=== PATIENT | female | born 1995 | race Caucasian/White ===

== ENCOUNTER 2017-02-04 18:12 | Inpatient (IN) | payer BC ==
[2017-02-04 19:47] LABS: BASOPHIL 0.2 % (0-2.0); EOSINOPHIL 0.2 % (0-4.5); MCH 30.1 pg (25.7-33.7); MCHC 34.2 g/dl (32.0-36.0); MEAN CELL VOLUME 88.1 fl (80-96); MEAN PLT VOLUME 10.8 fl (7.5-11.1); NEUTROPHILS 80.4 % (42.8-82.8); PLATELET COUNT 196 K/MM3 (134-434); RDW 12.2 % (11.6-15.6); WHITE BLOOD COUNT 7.4 K/mm3 (4.0-10.0)
[2017-02-04 19:57] LABS: URINE APPEARANCE SLCLOUDY; URINE BILIRUBIN NEGATIVE (NEGATIVE); URINE BLOOD 2+ (NEGATIVE); URINE COLOR LTYELLOW; URINE GLUCOSE (UA) NEGATIVE (NEGATIVE); URINE KETONE NEGATIVE (NEGATIVE); URINE NITRITE NEGATIVE (NEGATIVE); URINE PROTEIN NEGATIVE (NEGATIVE); URINE UROBILINOGEN NEGATIVE mg/dL (0.2-1.0)
[2017-02-04 19:59] LABS: INR 0.93 (0.82-1.09); PROTHROMBIN TIME (PATIENT) 10.2 SEC (9.98-11.88)
[2017-02-04 20:01] LABS: ACTIVATED PTT 24.5 SECONDS (26.9-34.4)
[2017-02-04 20:11] LABS: ALBUMIN 2.8 g/dl (3.4-5.0); ANION GAP 9 (8-16); BILIRUBIN,TOTAL 0.3 mg/dL (0.2-1.0); CALCIUM 9.5 mg/dL (8.5-10.1); CO2 27 mmol/L (21-32); CREATININE 0.5 mg/dL (0.55-1.02); GLUCOSE,RANDOM 75 mg/dL (74-106); SGOT/AST 17 U/L (15-37); SGPT/ALT 17 U/L (12-78); TOT PROT 6.2 g/dl (6.4-8.2); URIC ACID 3.3 mg/dL (2.6-7.2)
[2017-02-04 20:12] LABS: ALK PHOS 219 U/L (45-117); URINE LEUK ESTERASE 2+ (NEGATIVE)
[2017-02-04 20:13] LABS: URINE BACTERIA RARE /hpf (NONE SEEN); URINE MUCUS RARE; URINE RBC 9 /hpf (0-3); URINE WBC 11 /hpf (3-5); YEAST RARE
[2017-02-04] MEDS ORDERED: DEXTROSE 5%-LACTATED RINGERS 1,000 ML IV SCH (21:00)
[2017-02-04 21:23] LABS: HIV 1 & 2 AB NEGATIVE; HIV 1 AGp24 NEGATIVE
[2017-02-04] MEDS ORDERED: TUBERCULIN PPD 5 TU/0.1ML SYRINGE (IN PATIENT USE ONLY) ID ONE (23:00)
[2017-02-04 23:05] VITALS: BMI 30.9
--- NOTE | 2017-02-04 23:05 | HP ---
Past Medical History - Primary Care Physician PCP:: Tre Barraza - Admission Chief Complaint: 39 weeks , labor , gestational HTN History of Present Illness: 21 yo f edc by sono 02/08/17 c/o contraction , bp 130 /87 , cx 3 cm 80 vx -2 mi, fhr cat 1, contractio q 3 to 4 min , no headache, no blurred vision History Source: Patient Limitations to Obtaining History: No Limitations - Past Medical History ...: 1 ...Para: 0 ...Term: 0 ...: 0 ...Spon : 0 ...Induced : 0 ...LMP: 05/11/16 ... Weeks Gestation by Dates: 38.3 ...EDC by Dates: 02/15/17 ...EDC by Sono: 02/08/17 - Past Surgical History Hx Myomectomy: No Hx Transabdominal Cerclage: No - Smoking History Smoking history: Current every day smoker Aproximately how many cigarettes per day: 2 - Alcohol/Substance Use Hx Alcohol Use: No - Social History Usual Living Arrangement: Yes: With Spouse History of Recent Travel: No Home Medications - Allergies Allergies/Adverse Reactions: Allergies Allergy/AdvReac Type Severity Reaction Status Date / Time No Known Allergies Allergy Verified 02/04/17 18:28 - Home Medications Home Medications: Ambulatory Orders Vit/Iron Fumarate/FA [ Tablet] 1 tab PO DAILY 02/04/17 Review of Systems - Review of Systems Constitutional: reports: No Symptoms Eyes: reports: No Symptoms HENT: reports: No Symptoms Neck: reports: No Symptoms Cardiovascular: reports: No Symptoms Respiratory: reports: No Symptoms, PND Genitourinary: reports: No Symptoms Breasts: reports: No Symptoms Reported Musculoskeletal: reports: No Symptoms Integumentary: reports: No Symptoms Neurological: reports: No Symptoms Endocrine: reports: No Symptoms Hematology/Lymphatic: reports: No Symptoms Psychiatric: reports: No Symptoms Physical Exam - Maternity Vital Signs: Vital Signs Temperature 99.0 F 02/04/17 21:50 Pulse Rate 76 02/04/17 21:50 Respiratory Rate 18 02/04/17 21:50 Blood Pressure 131/81 02/04/17 21:50 O2 Sat by Pulse Oximetry (%) Constitutional: Yes: Well Nourished, No Distress, Calm Eyes: Yes: WNL, Conjunctiva Clear, EOM Intact HENT: Yes: WNL, Atraumatic, Normocephalic Neck: Yes: WNL, Supple, Trachea Midline Cardiovascular: Yes: WNL, Regular Rate and Rhythm Breast(s): Yes: WNL - Abdominal Exam/OB Fundal Height: 40 Number of Fetuses: Single Presentation: Vertex Contractions: Yes Regularity: Irregular Intensity: Mod/Strong Monitor Mode: External Heart Rate Location: [facility] Category: I Accelerations: Uniform Decelerations: None - Vaginal Exam/OB Vaginal Bleediing: No Speculum Exam: No Amniotic Membrane Status: Intact Presentation: Vertex/Position Station: -2 - Physical Exam Musculoskeletal: Yes: WNL Extremities: Yes: WNL Edema: LLE: Trace, RLE: Trace Deep Tendon Reflex Grade: Normal +2 ...Motor Strength: WNL Psychiatric: Yes: WNL - Labs Lab Results: CBC, BMP 02/04/17 18:35 02/04/17 18:35 Hemorrhage Risk Assessment - Risk Factors Medium Risk Factors: Yes: None High Risk Factors: Yes: None Risk Score: 1 Risk Level: Medium Risk Problem List - Problems (1) with 39 completed weeks gestation Code(s): Z3A.39 - 39 WEEKS GESTATION OF (2) Gestational [-induced] hypertension without significant proteinuria , complicating childbirth Code(s): O13.4 - GESTATNL HTN WITHOUT SIGNIFICANT PROTEIN, COMP CHILDBIRTH (3) Labor established Code(s): AOT0294 - Assessment/Plan admit, fhm, monitor BP, HELLP profile
[2017-02-04 23:11] LABS: URINE MARIJUANA THC NEGATIVE ng/ml (CUTOFF=50)
--- NOTE | 2017-02-05 07:32 | PN ---
Progress Note (short form) - Note Progress Note: cx 4 cm 80 vx -2 mi, fhr cat i , contraction q 3 to 4 min moderate intensity no headache Last Vital Signs Temp Pulse Resp BP Pulse Ox 97.8 F 76 20 129/77 02/05/17 06:00 02/05/17 06:00 02/05/17 06:00 02/05/17 06:00 plan arom, done, clear fluid pitocin rba discussed , agreed Problem List - Problems (1) with 39 completed weeks gestation Code(s): Z3A.39 - 39 WEEKS GESTATION OF (2) Gestational [-induced] hypertension without significant proteinuria , complicating childbirth Code(s): O13.4 - GESTATNL HTN WITHOUT SIGNIFICANT PROTEIN, COMP CHILDBIRTH (3) Labor established Code(s): QVH8316 -
[2017-02-05] MEDS ORDERED: OXYTOCIN 15 UNITS/ LR 250 ML 250 ML IVPB SCH (07:45)
[2017-02-05] MEDS ORDERED: PROMETHAZINE HCL 25 MG/1 ML VIAL IVPUSH ONE (08:23)
[2017-02-05] MEDS ORDERED: BUTORPHANOL TARTRATE 1 MG/ML VIAL IVPUSH PRN (08:23)
[2017-02-05] MEDS ORDERED: ELECTROLYTE-148 SOLN 1,000 ML IV SCH (09:30)
[2017-02-05] MEDS ORDERED: FENTANYL/BUPIVACAINE/NS/PF - PCEA - 50 ML DISP.SYRIN EP SCH (09:45)
--- NOTE | 2017-02-05 14:34 | PN ---
Ante-Partal Exam - Subjective Subjective: pt is c/o pressure to push Vital Signs: Vital Signs Temperature 98.2 F 02/05/17 14:00 Pulse Rate 83 02/05/17 13:45 Respiratory Rate 18 02/05/17 13:45 Blood Pressure 122/74 02/05/17 13:45 O2 Sat by Pulse Oximetry (%) 100 02/05/17 13:45 Bleeding: No Headache: No Visual changes: No Right upper quadrant pain: No Pain (scale 1-10): 7 - Contractions Contractions: Yes (q2min) Regularity: Regular Intensity: Moderate Monitor Mode: External - Exam during Labor Heart Rate: 140 Variability: Moderate Heart Rate Location: Midline Category: I Monitor Accelerations: Present Monitor Decelerations: Variable (small, occasional) Exam: Vaginal Dilatation (cm): 10 Effacement (%): 100 Amniotic Membrane Status: Ruptured Presentation: Vertex Station: +2 - Intrapartum Hemorrhage Risk Medium Risk Factors: None High Risk Factors: None Risk Score: 0 Risk Level: Low Risk - Assessment/Plan Assessment/Plan: 21yo P0 with at EGA 39wks in second stage of labor. Adequate gynecoid pelvimetry. The fetus does not require any intervention. Patient is pushing. Encouragement given and technique taught. Anticipate .
[2017-02-05] MEDS: IBUPROFEN 600 MG TABLET (FP) PO PRN (15:20)
[2017-02-05] MEDS: ACETAMINOPHEN 325 MG TABLET (FP) PO PRN (15:20)
[2017-02-05] MEDS ORDERED: BENZOCAINE 28 GM HEMORRHOIDAL OINTMENT TP PRN (15:55)
[2017-02-05] MEDS ORDERED: WITCH HAZEL 50% (TUCKS) 40 PAD/JAR PAD TP PRN (15:55)
[2017-02-05] MEDS ORDERED: BENZOCAINE 20% 57 GM BOTTLE TP PRN (15:55)
[2017-02-05] MEDS ORDERED: BISACODYL 10 MG SUPP.RECT RC PRN (15:55)
[2017-02-05] MEDS ORDERED: METHYLERGONOVINE MALEATE 0.2 MG/1 ML AMP IM PRN (15:55)
--- NOTE | 2017-02-05 15:59 | PN ---
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 Mother and baby are well.
[2017-02-05] MEDS ORDERED: D5W-LR W/ 20 UNITS OXYTOCIN 1,000 ML IV SCH (16:00)
--- NOTE | 2017-02-06 02:27 | PN ---
Post Progress Note - Subjective Subjective: Patient without acute complaints. Reports tolerating oral intake without nausea or vomiting. Ambulating without dizziness. Denies fevers or chills. Pain well controlled with oral pain medication. without difficulty. Passing flatus. Post Day: 1 Type of Delivery: Vital Signs: Vital Signs Temperature 98.1 F 02/06/17 01:58 Pulse Rate 93 H 02/06/17 01:58 Respiratory Rate 18 02/06/17 01:58 Blood Pressure 114/60 02/06/17 01:58 O2 Sat by Pulse Oximetry (%) 100 02/05/17 15:45 Breast Exam: Yes: Soft Uterus: Yes: Fundus Firm, Fundus below umbilicus Abdomen/GI: Yes: Abdomen soft, Passing flatus, Tolerating PO. No: Tender Lochia: Yes: Serosa Lochia, amount: Moderate Extremities: Yes: Calves non-tender. No: Edema Perineum: Yes: Laceration Activity: Ambulating - Labs Labs: CBC WBC 7.4 K/mm3 (4.0-10.0) 02/04/17 18:35 RBC 3.55 M/mm3 (3.60-5.2) L 02/04/17 18:35 Hgb 10.7 GM/dL (10.7-15.3) D 02/04/17 18:35 Hct 31.3 % (32.4-45.2) L 02/04/17 18:35 MCV 88.1 fl (80-96) 02/04/17 18:35 MCH 30.1 pg (25.7-33.7) 02/04/17 18:35 MCHC 34.2 g/dl (32.0-36.0) 02/04/17 18:35 RDW 12.2 % (11.6-15.6) 02/04/17 18:35 Plt Count 196 K/MM3 (134-434) 02/04/17 18:35 MPV 10.8 fl (7.5-11.1) D 02/04/17 18:35 Neutrophils % 80.4 % (42.8-82.8) 02/04/17 18:35 Lymphocytes % 12.7 % (8-40) D 02/04/17 18:35 Monocytes % 6.5 % (3.8-10.2) 02/04/17 18:35 Eosinophils % 0.2 % (0-4.5) D 02/04/17 18:35 Basophils % 0.2 % (0-2.0) 02/04/17 18:35 Retic Count 0.98 % (0.5-1.5) 02/04/17 18:35 Assessment/Plan 21 yo PPD # 1 s/p , afebrile, vital signs stable, doing well 1. Continue routine care. 2. Follow up AM CBC 3. Rh positive status, no rhogam indicated. 4. Encourage ambulation 5. Continue oral pain medication 6. Anticipate discharge home day #2
[2017-02-06] MEDS: ACETAMINOPHEN 325 MG TABLET (FP) PO PRN (04:46)
[2017-02-06] MEDS: IBUPROFEN 600 MG TABLET (FP) PO PRN (04:47)
[2017-02-06 08:19] LABS: BASOPHIL 0.3 % (0-2.0); EOSINOPHIL 0.3 % (0-4.5); MCH 29.8 pg (25.7-33.7); MCHC 34.1 g/dl (32.0-36.0); MEAN CELL VOLUME 87.2 fl (80-96); MEAN PLT VOLUME 10.1 fl (7.5-11.1); NEUTROPHILS 77.7 % (42.8-82.8); PLATELET COUNT 160 K/MM3 (134-434); RDW 12.4 % (11.6-15.6); WHITE BLOOD COUNT 8.5 K/mm3 (4.0-10.0)
[2017-02-06] MEDS: PRENATAL VITAMINS W/ FOLIC ACID TABLET (FP) PO SCH (09:52)
[2017-02-06] MEDS ORDERED: SENNOSIDES/DOCUSATE COMBO (SENNA PLUS) TABLET (UD) PO PRN (22:00)
[2017-02-07] MEDS: ACETAMINOPHEN 325 MG TABLET (FP) PO PRN (00:28)
[2017-02-07] MEDS: IBUPROFEN 600 MG TABLET (FP) PO PRN (00:28)
[2017-02-07 08:22] VITALS: BP 131/75; PULSE 77; TEMP 99
[2017-02-07] MEDS: PRENATAL VITAMINS W/ FOLIC ACID TABLET (FP) PO SCH (09:28)
--- NOTE | 2017-02-07 10:06 | PN ---
Post Progress Note - Subjective Subjective: Patient without acute complaints. Reports tolerating oral intake without nausea or vomiting. Ambulating without dizziness. Denies fevers or chills. Pain well controlled with oral pain medication. without difficulty. Passing flatus. Post Day: 2 Type of Delivery: Vital Signs: Vital Signs Temperature 99.0 F 02/07/17 07:30 Pulse Rate 77 02/07/17 07:30 Respiratory Rate 20 02/07/17 07:30 Blood Pressure 131/75 02/07/17 07:30 O2 Sat by Pulse Oximetry (%) 100 02/05/17 15:45 Breast Exam: Yes: Engorged Uterus: Yes: Fundus Firm, Fundus below umbilicus Abdomen/GI: Yes: Abdomen soft, Passing flatus, Tolerating PO. No: Tender Lochia: Yes: Serosa Lochia, amount: Small Extremities: Yes: Calves non-tender. No: Edema Perineum: Yes: Laceration Activity: Ambulating - Labs Labs: CBC WBC 8.5 K/mm3 (4.0-10.0) 02/06/17 07:45 RBC 3.10 M/mm3 (3.60-5.2) L 02/06/17 07:45 Hgb 9.2 GM/dL (10.7-15.3) L D 02/06/17 07:45 Hct 27.1 % (32.4-45.2) L 02/06/17 07:45 MCV 87.2 fl (80-96) 02/06/17 07:45 MCH 29.8 pg (25.7-33.7) 02/06/17 07:45 MCHC 34.1 g/dl (32.0-36.0) 02/06/17 07:45 RDW 12.4 % (11.6-15.6) 02/06/17 07:45 Plt Count 160 K/MM3 (134-434) 02/06/17 07:45 MPV 10.1 fl (7.5-11.1) 02/06/17 07:45 Neutrophils % 77.7 % (42.8-82.8) 02/06/17 07:45 Lymphocytes % 14.4 % (8-40) 02/06/17 07:45 Monocytes % 7.3 % (3.8-10.2) 02/06/17 07:45 Eosinophils % 0.3 % (0-4.5) 02/06/17 07:45 Basophils % 0.3 % (0-2.0) 02/06/17 07:45 Retic Count 0.98 % (0.5-1.5) 02/04/17 18:35 Haptoglobin 130 mg/dL (34-200) 02/04/17 18:35 Assessment/Plan 21 yo PPD # 2 s/p , afebrile, vital signs stable, mild symptomatic anemia, for discharge home 1. Patient stable for discharge home today. 2. Patient encouraged to contact MD for: - Severe pain not controlled by oral pain medication - Fevers or chills - Nausea or vomiting, intolerance of oral intake 3. Patient to follow up in office in 4-6 weeks for visit
--- NOTE | 2017-02-07 10:19 | DS ---
Physical Exam-CNC OPERATOR Vital Signs: Vital Signs Temperature 99.0 F 02/07/17 07:30 Pulse Rate 77 02/07/17 07:30 Respiratory Rate 20 02/07/17 07:30 Blood Pressure 131/75 02/07/17 07:30 O2 Sat by Pulse Oximetry (%) 100 02/05/17 15:45 Labs: CBC, BMP 02/06/17 07:45 02/04/17 18:35 Delivery - Delivery Vaginal Delivery: No Problems, Spontaneous Type of Anesthesia: Local, Epidural Episiotomy/Laceration: Perineal Extension/lac, 1st degree EBL (cc): 300 Delivery, Single - Stages of Labor Date 1st Stage Initiatied: 02/05/17 Time 1st Stage Initiated: 07:00 Date 2nd Stage Initiated: 02/05/17 Time 2nd Stage Initiated: 14:15 Date of Delivery: 02/05/17 Time of Delivery: 14:42 Time Placenta Delivered: 14:45 Placenta: Yes: Spontaneous, Normal Configuration - Condition of Crisis Worker/Dry Cans Operator Present: No Infant Gender: Male Weight: 6 lb 9 oz Position: Right, OA Total Hours ROM (Hrs/Mins): 7hrs 25min - 1 Minute Total Score: 9 5 Minutes Total Score: 9 - [place] Feeding Plan Initial Plan: Exclusive throughout hospitalization Benefits of Exclusively reinforced: Yes Discharge Summary Reason For Visit: LABOR ADMIT Current Active Problems Gestational [-induced] hypertension without significant proteinuria, complicating childbirth (Acute) Labor established (Acute) with 39 completed weeks gestation (Acute) Procedures: Principal: vaginal delivery Other Procedures: induction of labor Hospital Course: patient admitted with labile BPs, admitted for observation. PEC labs negative, no signs of PEC augmented with pitocin, progressed to deliver via Remained afebrile, vital signs stable, blood pressures returned to normal, stable for discharge home PPD #2 Condition: Good - Instructions Diet, Activity, Other Instructions: Physical activity Resume your normal everyday activity as tolerated no heavy lifting or exercise until seen by your surgeon. You may walk unlimited giovanni of and climb stairs. You may resume driving the car when you feel safe and comfortable behind the wheel. No sexual activity as instructed. Diet There are no dietary restrictions. Eat healthy, high-fiber foods. Drink 6 to 8 glasses of liquid each day. This will assist in keeping your bowels are regular. Pain management You may take Tylenol or acetaminophen or Ibuprofen (for example, Motrin, Advil etc.) from my pain prescription medication is ordered should be taken as prescribed for moderate to severe pain. Call MD for any of the following: Severe pain not relieved by medication Fever of 101 or higher Excessive bleeding or drainage on dressing Inability to urinate Disposition: HOME - Home Medications Comprehensive Discharge Medication List: Ambulatory Orders Vit/Iron Fumarate/FA [ Tablet] 1 tab PO DAILY 02/04/17 Ibuprofen [Motrin -] 600 mg PO QID PRN #30 tablet 02/07/17
== END 2017-02-07 13:40 | disposition home or self-care (01) | DRG 775 ==
LOC: JDEL 18:12 → JLDR 20:40 → J3W 02-05 16:22
PROVIDERS: ADMIT Obstetrics & Gynecology; ATTEND Obstetrics & Gynecology
PROC: 10E0XZZ Delivery of Products of Conception, External Approach (ICD-10-PCS; principal; 2017-02-05)
PROC: 0HQ9XZZ Repair Perineum Skin, External Approach (ICD-10-PCS; 2017-02-05)
DX: O13.4 Gestational [pregnancy-induced] hypertension without significant proteinuria, complicating childbirth (principal); O70.0 First degree perineal laceration during delivery; O99.02 Anemia complicating childbirth; D64.9 Anemia, unspecified; Z3A.39 39 weeks gestation of pregnancy; Z37.0 Single live birth
CPT/HCPCS: 36415; 59409; 80053; 80307; 81003; 81015; 82977; 83010; 84550; 85025; 85044; 85610; 85730; 86593; 86850; 86900; 86901; 87389

== ENCOUNTER 2019-02-11 22:25 | Inpatient (IN) | payer OTHER ==
[2019-02-11] MEDS ORDERED: ELECTROLYTE-148 SOLN 1,000 ML IV SCH (23:45)
--- NOTE | 2019-02-11 23:53 | HP ---
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: Alzheimer's, CVA, Dementia, Migraine, Multiple Sclerosis, Peripheral Neuropathy, Parkinson's, Seizure, Syncope, TIA, Vertigo, Other Cardiovascular: No: AFIB, Aneurysm, Aortic Insufficiency, Aortic Stenosis, CAD, CHF, Deep Vein Thrombosis, HTN, Hyperlipdemia, NC, Mitral Insufficiency, Mitral Stenosis, Murmur, Pulmonary Hypertension, Other Pulmonary: No: Asthma, Bronchitis, Cancer, COPD, O2 Dependent, Pneumonia, Previously Intubated, Pulmonary Embolus, Pulmonary Fibrosis, Sleep Apnea, Other Gastrointestinal: No: Ascites, Cancer, Constipation, Crohn's Disease, Diverticulitis, Diverticulosis, Esophageal Varices, Gastritis, GERD, GI Bleed, Hemorrhoids, Hiatal Hernia, Inflamatory Bowel Disease, Irritable Bowel Disease, Pancreatitis, Peptic Ulcer Disease, Ulcerative Colitis, Other Hepatobiliary: No: Cirrhosis, Cholelithiasis, Cholecystitis, Choledocholithiasis , Hepatitis A, Hepatitis B, Hepatitis C, Other Renal/: No: Renal Failure, Renal Inusuff, BPH, Cancer, Hematuria, Hemodialysis , Neurogenic Bladder, Renal Calculi, UTI, Other Reproductive: No: Ectopic , Endometriosis, Fibroids, PID, Polycystic Ovary Syndrome, Postmenopausal, Other Heme/Onc: Yes: Anemia (mild) Infectious Disease: No: AIDS, C-Diff, Herpes Zoster, HIV, MRSA, STD's, Tuberculosis, VREF, Other Psych: No: Addictions, Anxiety, Bipolar, Depression, Panic, Psychosis, Schizophrenia, Other Musculoskeletal: No: Bursitis, Chronic low back pain, Hemiparesis, Hemiplegia, Osteoarthritis, Paraplegia, Other Rheumatology: No: Fibromyalgia, Gout, Lupus, Rheumatoid Arthritis, Sarcoidosis, Vasculitis, Other ENT: No: Allergic Rhinitis, Sinusitis, Other Endocrine: No: [place]'s Disease, Rosy's Disease, Diabetes Insipidus, Diabetes Mellitus, Hyperparathyroidism, Hyperthyroidism, Hypothyroidism, Osteopenia, SIADH, Other Dermatology: No: Basal Cell, Cellulitis, Eczema, Melanoma, Psoriasis, Squamous Cell, Other - Past Surgical History Past Surgical History: No: None, AAA Repair, AICD, Amputation, Appendectomy, Arthrosocopy, AV Fistula/Graft, Bariatric Surgery, Breast Biopsy, Bypass, CABG, Carotid Endarterectomy, Cataract Removal, Cholecystectomy, Colectomy, Colonoscopy, Colostomy, Craniotomy, , Cystectomy, Hernia Repair, Hysterectomy, Ileal Conduit, Ileosotomy, Joint Replacement, Kidney Transplant, Laminectomy, Liver Transplant, Mastectomy, Nephrectomy, Oopherectomy, Orchiectomy, Permanent Pacemaker, Prostatectomy, Splenectomy, Stent, Thoracotomy , TURP, Tonsillectomy, Tubal Ligation, Upper Endoscopy, Valve Replacement, Vasectomy, Vein Stripping/Ligation Hx Myomectomy: No Hx Transabdominal Cerclage: No - Smoking History Smoking history: Current every day smoker Have you smoked in the past 12 months: No Aproximately how many cigarettes per day: 2 - Alcohol/Substance Use Hx Alcohol Use: No History of Substance Use: reports: Marijuana - Social History History of Recent Travel: No Home Medications - Allergies Allergies/Adverse Reactions: Allergies Allergy/AdvReac Type Severity Reaction Status Date / Time No Known Allergies Allergy Verified 02/04/17 18:28 - Home Medications Home Medications: Ambulatory Orders Vit/Iron Fum/Folic AC [ Tablet] 1 tab PO DAILY 02/04/17 Family Disease History - Family Disease History Family History: Unremarkable Review of Systems - Review of Systems Constitutional: reports: No Symptoms Eyes: reports: No Symptoms HENT: reports: No Symptoms Neck: reports: No Symptoms, Swollen Glands Respiratory: reports: No Symptoms Gastrointestinal: reports: No Symptoms Genitourinary: reports: No Symptoms Breasts: reports: No Symptoms Reported Musculoskeletal: reports: No Symptoms Integumentary: reports: No Symptoms Neurological: reports: No Symptoms Endocrine: reports: No Symptoms Hematology/Lymphatic: reports: No Symptoms Psychiatric: reports: No Symptoms Physical Exam - Maternity Constitutional: Yes: Calm Eyes: Yes: WNL HENT: Yes: Atraumatic, Tonsillar Exudate Cardiovascular: Yes: Regular Rate and Rhythm - Abdominal Exam/OB Number of Fetuses: Single Presentation: Vertex Contractions: Yes Regularity: Irregular Monitor Mode: External Category: I Accelerations: Uniform Decelerations: None - Vaginal Exam/OB Speculum Exam: No (grossly ruptured) Dilatation (cm): 4 Effacement (%): 70 Amniotic Membrane Status: Ruptured Station: -3 - Physical Exam Musculoskeletal: Yes: WNL Extremities: Yes: WNL Edema: LLE: Trace, RLE: Trace Integumentary: Yes: WNL ...Motor Strength: WNL Psychiatric: Yes: Alert, Oriented Imaging - Results Ultrasound: Report Reviewed Assessment/Plan 23 y/o @ 38.5wks, PROM, GBS negative, FHT cat I, comfortable -Expectant management -consider pitocin augmentation accordingly
[2019-02-12 01:02] LABS: BASO % 0.2 % (0-2.0); EOS % 0.2 % (0-4.5); HEMATOCRIT 31.4 % (32.4-45.2); HEMOGLOBIN 10.4 GM/dL (10.7-15.3); LYMPH % 19.7 % (8-40); MCH 27.7 pg (25.7-33.7); MEAN CELL VOLUME 83.9 fl (80-96); MEAN PLT VOLUME 10.2 fl (7.5-11.1); MONO % 6.8 % (3.8-10.2); NEUT % 73.1 % (42.8-82.8); PLATELET COUNT 248 K/MM3 (134-434); RBC 3.75 M/mm3 (3.60-5.2); RDW 13.3 % (11.6-15.6); WHITE BLOOD COUNT 7.6 K/mm3 (4.0-10.0)
[2019-02-12 01:15] LABS: INR 0.95 (0.83-1.09); PROTHROMBIN TIME (PATIENT) 11.2 SEC (9.7-13.0)
[2019-02-12 01:24] LABS: BLOOD UREA NITROGEN 5.5 mg/dL (7-18); CALCIUM 8.8 mg/dL (8.5-10.1); CREATININE 0.4 mg/dL (0.55-1.3); POTASSIUM 3.6 mmol/L (3.5-5.1)
[2019-02-12 01:42] VITALS: BMI 29.9
[2019-02-12] MEDS ORDERED: OXYTOCIN 30 UNITS in 0.9% NS 30 UNIT/500 ML INFUS.BAG IVPB SCH (02:45)
[2019-02-12 04:24] LABS: COCAINE, UR NEGATIVE ng/ml (CUTOFF=300); METHADONE, UR NEGATIVE ng/ml (CUTOFF=300); OPIATES, URI NEGATIVE ng/ml (CUTOFF=300); PHENCYCLIDINE,URINE NEGATIVE ng/ml (CUTOFF=25); URINE AMPHETAMINES NEGATIVE ng/ml (CUTOFF=500); URINE BARBITURATES NEGATIVE ng/ml (CUTOFF=200); URINE BENZODIAZEPINES NEGATIVE ng/ml (CUTOFF=200)
[2019-02-12] MEDS ORDERED: PROMETHAZINE HCL 25 MG/1 ML VIAL IVPB ONE (06:00)
[2019-02-12] MEDS ORDERED: BUTORPHANOL TARTRATE 2 MG/ML VIAL IVPB ONE ×2 (06:00→08:45)
[2019-02-12] MEDS ORDERED: PROMETHAZINE HCL 25 MG/1 ML VIAL ONE (06:38)
[2019-02-12] MEDS ORDERED: BUTORPHANOL TARTRATE 1 MG/ML VIAL ONE ×2 (06:38)
[2019-02-12] MEDS ORDERED: FENTANYL/BUPIVACAINE/NS/PF - PCEA - 50 ML DISP.SYRIN EP ONE (07:01)
[2019-02-12] MEDS ORDERED: NALOXONE HCL 0.4 MG/ML VIAL IVPUSH PRN (07:51)
[2019-02-12] MEDS ORDERED: FENTANYL/BUPIVACAINE/NS/PF - PCEA - 50 ML DISP.SYRIN EP SCH (08:00)
[2019-02-12] MEDS ORDERED: BENZOCAINE 20% 57 GM BOTTLE TP PRN (09:05)
[2019-02-12] MEDS ORDERED: BENZOCAINE 28 GM HEMORRHOIDAL OINTMENT TP PRN (09:05)
[2019-02-12] MEDS ORDERED: BISACODYL 10 MG SUPP.RECT RC PRN (09:05)
[2019-02-12] MEDS ORDERED: WITCH HAZEL 50% (TUCKS) 40 PAD/JAR PAD TP PRN (09:05)
--- NOTE | 2019-02-12 09:10 | PN ---
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 Loose nuchal cord x1 removed and shoulders delivered without difficulty. was suction at mouth and nostrils by attending. Cord was clamped and cut after delay. Samples for gases and blood obtained. Infant handed off to nurse. Placenta delivered spontaneously and intact, 3VC. Exam revealed excellent hemostasis and no lacerations. Instrument/sponge count correct x 2
[2019-02-12] MEDS ORDERED: OXYTOCIN 20 UNITS in 0.9% NS 20 UNIT/1,000 ML INFUS.BAG IV SCH (09:15)
[2019-02-12] MEDS: ACETAMINOPHEN 325 MG TABLET (FP) PO PRN ×2 (09:25→17:24)
[2019-02-12] MEDS: IBUPROFEN 600 MG TABLET (FP) PO PRN ×2 (09:25→17:23)
[2019-02-12] MEDS ORDERED: IBUPROFEN 600 MG TABLET (FP) PO ONE (09:26)
[2019-02-12] MEDS ORDERED: ACETAMINOPHEN 325 MG TABLET (FP) ONE (09:26)
[2019-02-13] MEDS: IBUPROFEN 600 MG TABLET (FP) PO PRN ×3 (01:30→21:43)
[2019-02-13] MEDS: ACETAMINOPHEN 325 MG TABLET (FP) PO PRN ×3 (01:31→21:44)
--- NOTE | 2019-02-13 07:23 | PN ---
Post Progress Note - Subjective Subjective: Ambulating, breast feeding, tolerating PO, lochia decreased, voiding Post Day: 1 Type of Delivery: Vital Signs: Vital Signs Temperature 98.2 F 02/13/19 06:00 Pulse Rate 79 02/13/19 06:00 Respiratory Rate 18 02/13/19 06:00 Blood Pressure 114/71 02/13/19 06:00 O2 Sat by Pulse Oximetry (%) 100 02/12/19 09:40 Breast Exam: Yes: Other (deferred) Uterus: Yes: Fundus Firm Abdomen/GI: Yes: Abdomen soft Lochia, amount: Moderate Extremities: Yes: Calves non-tender Activity: Ambulating - Labs Labs: CBC WBC 7.6 K/mm3 (4.0-10.0) 02/12/19 00:15 RBC 3.75 M/mm3 (3.60-5.2) 02/12/19 00:15 Hgb 10.4 GM/dL (10.7-15.3) L 02/12/19 00:15 Hct 31.4 % (32.4-45.2) L D 02/12/19 00:15 MCV 83.9 fl (80-96) 02/12/19 00:15 MCH 27.7 pg (25.7-33.7) 02/12/19 00:15 MCHC 33.0 g/dl (32.0-36.0) 02/12/19 00:15 RDW 13.3 % (11.6-15.6) 02/12/19 00:15 Plt Count 248 K/MM3 (134-434) D 02/12/19 00:15 MPV 10.2 fl (7.5-11.1) 02/12/19 00:15 Absolute Neuts (auto) 5.6 K/mm3 (1.5-8.0) 02/12/19 00:15 Neutrophils % 73.1 % (42.8-82.8) 02/12/19 00:15 Lymphocytes % 19.7 % (8-40) D 02/12/19 00:15 Monocytes % 6.8 % (3.8-10.2) 02/12/19 00:15 Eosinophils % 0.2 % (0-4.5) 02/12/19 00:15 Basophils % 0.2 % (0-2.0) 02/12/19 00:15 Nucleated RBC % 0 % (0-0) 02/12/19 00:15 Other Findings, Remarks: AM labs results pending Assessment/Plan PPD # 1 in stable condition -Continue PP care -Anticipate D/C home tomorrow
[2019-02-13 07:54] LABS: BASO % 0.4 % (0-2.0); EOS % 0.6 % (0-4.5); HEMATOCRIT 27.6 % (32.4-45.2); HEMOGLOBIN 9.2 GM/dL (10.7-15.3); LYMPH % 24.6 % (8-40); MCHC 33.2 g/dl (32.0-36.0); MEAN CELL VOLUME 84.5 fl (80-96); MEAN PLT VOLUME 10.2 fl (7.5-11.1); MONO % 7.5 % (3.8-10.2); NEUT % 66.9 % (42.8-82.8); PLATELET COUNT 219 K/MM3 (134-434); RBC 3.27 M/mm3 (3.60-5.2); RDW 13.4 % (11.6-15.6)
[2019-02-13 09:01] LABS: POC NITRAZINE POS
[2019-02-13] MEDS ORDERED: SENNOSIDES/DOCUSATE COMBO (SENNA PLUS) TABLET (UD) PO PRN (22:00)
[2019-02-14] MEDS: IBUPROFEN 600 MG TABLET (FP) PO PRN (09:10)
[2019-02-14] MEDS: ACETAMINOPHEN 325 MG TABLET (FP) PO PRN (09:10)
[2019-02-14 09:31] VITALS: BP 135/76; PULSE 84; TEMP 98.3
== END 2019-02-14 11:20 | disposition home or self-care (01) | DRG 560 ==
LOC: JLDR 22:25 → J3W 02-12 10:55
PROVIDERS: ADMIT Student in an Organized Health Care Education/Training Program; ATTEND Student in an Organized Health Care Education/Training Program
PROC: 10E0XZZ Delivery of Products of Conception, External Approach (ICD-10-PCS; principal; 2019-02-12)
DX: O42.92 Full-term premature rupture of membranes, unspecified as to length of time between rupture and onset of labor (principal); Z3A.38 38 weeks gestation of pregnancy; Z37.0 Single live birth
CPT/HCPCS: 36415; 36600; 59409; 80048; 80307; 82803; 83986-QW; 85025; 85610; 85730; 86593; 86850; 86900; 86901

== ENCOUNTER 2019-08-08 20:53 | Emergency (ER) | payer BC, OTHER ==
[2019-08-08 20:57] VITALS: BP 114/70; PULSE 108; TEMP 98.7; BMI 26.2
--- NOTE | 2019-08-08 20:58 | PDOC ---
Rapid Medical Evaluation Time Seen by Provider: 08/08/19 20:55 Medical Evaluation: Allergies Allergy/AdvReac Type Severity Reaction Status Date / Time No Known Allergies Allergy Verified 02/04/17 18:28 08/08/19 20:55 CC: labile fevers and ARROYO; Took tylenol prior to arrival PE: OP- WNL. Lungs CTAB. FROM cervical spine. Neuro grossly normal. Orders: influenza Patient will proceed to ED for further evaluation. Discharge Disposition - Diagnosis Headache - Referrals - Patient Instructions - Post Discharge Activity
[2019-08-08] MEDS ORDERED: KETOROLAC TROMETHAMINE 60 MG/2 ML VIAL IM ONE (21:13)
[2019-08-08] MEDS ORDERED: KETOROLAC TROMETHAMINE 60 MG/2 ML VIAL ONE (21:14)
--- NOTE | 2019-08-08 21:16 | PDOC ---
History of Present Illness - General Chief Complaint: Headache Stated Complaint: HEADACHE/FEVER Time Seen by Provider: 08/08/19 20:55 - History of Present Illness Initial Comments: 08/08/19 21:15 24-year-old female denies the possibility of presents for flulike symptoms x1 day Past History - Past Medical History Allergies/Adverse Reactions: Allergies Allergy/AdvReac Type Severity Reaction Status Date / Time No Known Allergies Allergy Verified 08/08/19 20:57 Home Medications: Ambulatory Orders Vit/Iron Fum/Folic AC [ Tablet] 1 tab PO DAILY 02/04/17 Oseltamivir Phosphate [Tamiflu] 75 mg PO BID #10 capsule 08/08/19 Asthma: No Cancer: No Cardiac Disorders: No COPD: No Diabetes: No HTN: No Kidney Stones: Yes Seizures: No Thyroid Disease: No - Immunization History Immunization Up to Date: No - Psycho Social/Smoking Cessation Hx Smoking Status: No Smoking History: Current every day smoker Have you smoked in the past 12 months: No Number of Cigarettes Smoked Daily: 2 Information on smoking cessation initiated: Yes Hx Alcohol Use: No Drug/Substance Use Hx: No Hx Substance Use Treatment: No Review of Systems - Review of Systems Constitutional: Yes: Chills, Diaphoresis, Fever, Malaise, Night Sweats HEENTM: Yes: Nose Congestion Respiratory: Yes: Cough Neurological: Yes: Headache *Physical Exam - Vital Signs Last Vital Signs Temp Pulse Resp BP Pulse Ox 98.7 F 108 H 18 114/70 97 08/08/19 20:55 08/08/19 20:55 08/08/19 20:55 08/08/19 20:55 08/08/19 20:55 - Physical Exam 08/08/19 21:15 GENERAL: The patient is awake, alert, and fully oriented, in no acute distress. HEAD: Normal with no signs of trauma. EYES: sclera anicteric, conjunctiva clear. ENT: Ears normal tympanic membranes normal oropharynx clear uvula midline NECK: Normal range of motion LUNGS: Breath sounds equal, clear to auscultation bilaterally. No wheezes, and no crackles. HEART: S1 and S2 without murmur, rub or gallop. ABDOMEN: Soft, nontender, normoactive bowel sounds. No guarding, no rebound. No masses. EXTREMITIES: Normal range of motion, no edema. No clubbing or cyanosis. No cords, erythema, or tenderness. NEUROLOGICAL: Cranial nerves II through XII grossly intact. PSYCH: Normal mood, normal affect. SKIN: Warm, Dry, normal turgor, no rashes or lesions noted. Medical Decision Making - Medical Decision Making 08/08/19 21:15 Toradol for headache we will treat for influenza based on symptoms I have reviewed the pathophysiology with the patient. They are in agreement with the treatment plan all questions were answered to their satisfaction. Understanding for follow-up without fail was also conveyed to the patient. Again they are in agreement. Discharge - Discharge Information Problems reviewed: Yes Clinical Impression/Diagnosis: Headache, Flu-like symptoms Condition: Stable Disposition: HOME - Admission No - Additional Discharge Information Prescriptions: Oseltamivir Phosphate [Tamiflu] 75 mg PO BID #10 capsule - Follow up/Referral Referrals: Pascual Nair MD [Staff Physician] - - Patient Discharge Instructions Additional Instructions: Tylenol Motrin as directed for fever and body aches. Return to the emergency room for worsening symptoms and without fail follow-up with your primary care physician in 1 to 2 days for further evaluation and treatment options. Please take the Tamiflu as directed. - Post Discharge Activity Work/Back to School Note: Back to Work
== END 2019-08-08 21:31 | disposition home or self-care (01) ==
LOC: JERFT 20:53
PROC: 3E0233Z Introduction of Anti-inflammatory into Muscle, Percutaneous Approach (ICD-10-PCS; principal; 2019-08-08)
DX: J11.1 Influenza due to unidentified influenza virus with other respiratory manifestations (principal); R51 Headache
CPT/HCPCS: 99284-25

== ENCOUNTER 2019-08-09 17:04 | Emergency (ER) | payer BC ==
[2019-08-09] MEDS ORDERED: IBUPROFEN 600 MG TABLET (FP) PO ONE ×2 (17:19→18:41)
--- NOTE | 2019-08-09 17:20 | PDOC ---
Rapid Medical Evaluation Time Seen by Provider: 08/09/19 17:17 Medical Evaluation: Allergies Allergy/AdvReac Type Severity Reaction Status Date / Time No Known Allergies Allergy Verified 08/08/19 20:57 08/09/19 17:20 Pt c/o: myalgia, fever, and headache x 2 days ago Pt on brief exam: febrile, appears flulike pt ordered for: strep and motrin Pt to proceed to the ED Discharge Disposition - Diagnosis Flu-like symptoms - Referrals - Patient Instructions - Post Discharge Activity
[2019-08-09 17:23] VITALS: BP 121/72; PULSE 111; TEMP 102.7; BMI 26.2
[2019-08-09] MEDS ORDERED: SODIUM CHLORIDE 0.9% 500 ML INFUS.BAG IV ONE (17:51)
[2019-08-09] MEDS ORDERED: METOCLOPRAMIDE HCL INJECTION 10 MG/2 ML VIAL IVPUSH ONE (17:52)
[2019-08-09] MEDS ORDERED: ACETAMINOPHEN 1000 MG/100 ML VIAL (NON FORMULARY) IVPB ONE (17:52)
[2019-08-09] MEDS ORDERED: METOCLOPRAMIDE HCL INJECTION 10 MG/2 ML VIAL ONE (18:41)
[2019-08-09] MEDS ORDERED: ACETAMINOPHEN INJECTION 100 ML IVPB ONE (18:41)
[2019-08-09 19:09] LABS: BASO % 0.2 % (0-2.0); HEMATOCRIT 36.4 % (32.4-45.2); HEMOGLOBIN 11.8 GM/dL (10.7-15.3); LYMPH % 6.8 % (8-40); MCH 25.9 pg (25.7-33.7); MCHC 32.4 g/dl (32.0-36.0); MEAN PLT VOLUME 9.8 fl (7.5-11.1); MONO % 6.6 % (3.8-10.2); NEUT % 86.4 % (42.8-82.8); PLATELET COUNT 186 K/MM3 (134-434); RBC 4.55 M/mm3 (3.60-5.2); RDW 16.3 % (11.6-15.6); WHITE BLOOD COUNT 4.1 K/mm3 (4.0-10.0)
[2019-08-09 19:46] LABS: ALBUMIN 4.2 g/dl (3.4-5.0); BILIRUBIN,TOTAL 0.3 mg/dL (0.2-1); BLOOD UREA NITROGEN 8.8 mg/dL (7-18); CALCIUM 8.8 mg/dL (8.5-10.1); CREATININE 0.5 mg/dL (0.55-1.3); POTASSIUM 3.5 mmol/L (3.5-5.1); TOT PROT 7.9 g/dl (6.4-8.2)
--- NOTE | 2019-08-09 20:28 | PDOC ---
History of Present Illness - General Chief Complaint: Cold Symptoms Stated Complaint: HIGH FEVER Time Seen by Provider: 08/09/19 17:17 - History of Present Illness Initial Comments: 08/09/19 20:26 24-year-old female returns from last night with the same complaint of headache. She did not berry picker the medication from her pharmacy. She was presumptively treated for influenza. Past History - Past Medical History Allergies/Adverse Reactions: Allergies Allergy/AdvReac Type Severity Reaction Status Date / Time No Known Allergies Allergy Verified 08/09/19 17:22 Home Medications: Ambulatory Orders NK [No Known Home Medication] 08/09/19 Asthma: No Cancer: No Cardiac Disorders: No COPD: No Diabetes: No HTN: No Kidney Stones: Yes Seizures: No Thyroid Disease: No - Immunization History Immunization Up to Date: No - Psycho Social/Smoking Cessation Hx Smoking Status: No Smoking History: Current every day smoker Have you smoked in the past 12 months: Yes Number of Cigarettes Smoked Daily: 2 If you are a former smoker, when did you quit?: 07/2018 Information on smoking cessation initiated: No Hx Alcohol Use: No Drug/Substance Use Hx: No Hx Substance Use Treatment: No Review of Systems - Review of Systems Constitutional: Yes: Fever HEENTM: Yes: Nose Congestion Respiratory: Yes: Cough Neurological: Yes: Headache *Physical Exam - Vital Signs Last Vital Signs Temp Pulse Resp BP Pulse Ox 102.7 F H 111 H 18 121/72 100 08/09/19 17:17 08/09/19 17:17 08/09/19 17:17 08/09/19 17:17 08/09/19 17:17 - Physical Exam 08/09/19 20:26 GENERAL: The patient is awake, alert, and fully oriented, in no acute distress. HEAD: Normal with no signs of trauma. EYES: sclera anicteric, conjunctiva clear. ENT: Ears normal tympanic membranes normal oropharynx clear uvula midline NECK: Normal range of motion LUNGS: Breath sounds equal, clear to auscultation bilaterally. No wheezes, and no crackles. HEART: S1 and S2 without murmur, rub or gallop. ABDOMEN: Soft, nontender, normoactive bowel sounds. No guarding, no rebound. No masses. EXTREMITIES: Normal range of motion, no edema. No clubbing or cyanosis. No cords, erythema, or tenderness. NEUROLOGICAL: Cranial nerves II through XII grossly intact. PSYCH: Normal mood, normal affect. SKIN: Warm, Dry, normal turgor, no rashes or lesions noted. ED Treatment Course - LABORATORY CBC & Chemistry Diagram: 08/09/19 18:30 08/09/19 18:30 - ADDITIONAL ORDERS Additional order review: Laboratory Results 08/09/19 08/09/19 18:30 18:30 Sodium 136 Potassium 3.5 Chloride 102 Carbon Dioxide 25 Anion Gap 9 BUN 8.8 Creatinine 0.5 L Est GFR (CKD-EPI)AfAm 159.23 Est GFR (CKD-EPI)NonAf 137.38 Random Glucose 115 H Calcium 8.8 Total Bilirubin 0.3 AST 33 ALT 44 Alkaline Phosphatase 97 Total Protein 7.9 Albumin 4.2 Serum , Qual Negative 08/09/19 18:30 RBC 4.55 MCV 80.0 MCHC 32.4 RDW 16.3 H MPV 9.8 Neutrophils % 86.4 H D Lymphocytes % 6.8 L D Monocytes % 6.6 Eosinophils % 0.0 D Basophils % 0.2 - RADIOLOGY Radiology Studies Ordered: Category Date Time Status HEAD CT WITHOUT CONTRAST [CT] Stat CT Scan 08/09/19 17:51 Completed - Medications Given in the ED: ED Medications Discontinued Medications Generic Name Dose Route Start Last Admin Trade Name Freq PRN Reason Stop Dose Admin Acetaminophen 1,000 mg 08/09/19 17:52 08/09/19 18:45 Ofirmev Injection - IVPB 08/09/19 17:53 1,000 mg ONCE ONE Administration Diphenhydramine HCl 25 mg 08/09/19 17:52 08/09/19 19:02 Benadryl Injection - IVPB 08/09/19 17:53 25 mg ONCE ONE Administration Ibuprofen 600 mg 08/09/19 17:19 08/09/19 18:40 Motrin - PO 08/09/19 17:20 600 mg ONCE ONE Administration Metoclopramide HCl 10 mg 08/09/19 17:52 08/09/19 18:50 Reglan Injection - IVPUSH 08/09/19 17:53 10 mg ONCE ONE Administration Sodium Chloride 1,000 ml 08/09/19 17:51 08/09/19 18:30 Normal Saline - IV 08/09/19 17:52 1,000 ml ONCE ONE Administration Medical Decision Making - Medical Decision Making 08/09/19 20:27 Negative CAT scan patient feeling better after IV fluids and meds. Continue the Tamiflu as directed today and follow-up with primary care physician in the next 1 to 2 days without fail. I have reviewed the pathophysiology with the patient. They are in agreement with the treatment plan all questions were answered to their satisfaction. Understanding for follow-up without fail was also conveyed to the patient. Again they are in agreement. Discharge - Discharge Information Problems reviewed: Yes Clinical Impression/Diagnosis: Flu-like symptoms Condition: Improved Disposition: HOME - Admission No - Follow up/Referral - Patient Discharge Instructions Additional Instructions: Please continue the Tamiflu as directed and return to the emergency room should symptoms worsen. Without fail follow-up with your primary care physician in 1 to 2 days for further evaluation and treatment options. CAT scan today was negative. - Post Discharge Activity
== END 2019-08-09 20:38 | disposition home or self-care (01) ==
LOC: JERFT 17:04 → JER 17:04 → JERFT 20:38
PROC: 3E0337Z Introduction of Electrolytic and Water Balance Substance into Peripheral Vein, Percutaneous Approach (ICD-10-PCS; principal; 2019-08-09)
PROC: 3E033GC Introduction of Other Therapeutic Substance into Peripheral Vein, Percutaneous Approach (ICD-10-PCS; 2019-08-09)
DX: J11.1 Influenza due to unidentified influenza virus with other respiratory manifestations (principal); F17.210 Nicotine dependence, cigarettes, uncomplicated; N20.0 Calculus of kidney
CPT/HCPCS: 36415; 70450-TC; 80053; 84703; 85025; 99285-25; J0131